=== PATIENT | male | born 1965 | race Hispanic/Latino ===

== ENCOUNTER 2022-05-26 12:39 | Emergency (ER) | payer OTHER ==
[~2022-05-26] VITALS: Ht 167.6 cm; Wt 72.6 kg
[2022-05-26 13:35] LABS: BASOPHILS % (AUTO) 0.2 % (0.0-5.0); EOSINOPHILS % (AUTO) 0.2 % (0.0-8.0); HEMATOCRIT 44.8 % (42-54); LYMPHOCYTES % (AUTO) 4.9 % (21.0-51.0); MEAN CORPUSCULAR HEMOGLOBIN 29.6 pg (27.0-33.0); MEAN CORPUSCULAR VOLUME 84.5 fL (79-99); MONOCYTES % (AUTO) 12.3 % (3.0-13.0); NEUTROPHILS % (AUTO) 82.1 % (40.0-77.0); PLATELET COUNT (AUTO) 220 K/uL (130-400); WHITE BLOOD COUNT (AUTO) 6.5 K/uL (4.8-10.8)
[2022-05-26 13:43] LABS: POTASSIUM 4.4 mmol/L (3.5-5.1)
[2022-05-26 13:43] LABS: APPEARANCE,URINE Clear (CLEAR); BILIRUBIN,URINE Negative (NEGATIVE); COLOR,URINE Yellow (YELLOW); GLUCOSE, URINE (UA) Negative (NEGATIVE); KETONES,URINE Negative (NEGATIVE); LEUKOCYTE ESTERASE ,URINE Negative (NEGATIVE); NITRATE,URINE Negative (NEGATIVE); OCCULT BLOOD,URINE Negative (NEGATIVE); PH,URINE 5.5 (5.0-8.0); PROTEIN,URINE Negative (NEGATIVE); UROBILINOGEN,URINE 0.2 mg/dL (0.2-1.0)
[2022-05-26 13:48] LABS: BILIRUBIN,TOTAL 0.4 mg/dL (0.2-1.0); TOTAL PROTEIN, SERUM 8.1 g/dL (6.0-8.3)
[2022-05-26] MEDS ORDERED: ACETAMINOPHEN 500 MG TABLET PO ONE (14:00)
[2022-05-26] MEDS ORDERED: ACET-66 PO (15:04)
[2022-05-26] MEDS ORDERED: D-ME118S47 PO (15:04)
[2022-05-26] MEDS ORDERED: ONDA4TAB10 PO (15:04)
[2022-05-26 15:11] VITALS: BP 125/82
[2022-05-26] MEDS ORDERED: ONDANSETRON ODT 4MG TAB SL ONE (15:30)
== END 2022-05-26 16:00 | disposition home or self-care (01) ==
LOC: EDH 12:39
DX: U07.1 COVID-19 (principal); E78.00 Pure hypercholesterolemia, unspecified; Z98.890 Other specified postprocedural states; Z79.899 Other long term (current) drug therapy
CPT/HCPCS: 36415; 80053; 81003; 85025; 87635; 87804 ×2; 99283; C9803

== ENCOUNTER 2024-09-07 10:36 | Emergency (ER) | payer BC ==
[~2024-09-07] VITALS: Ht 172.7 cm; Wt 77.1 kg
[~2024-09-07 10:36] MED LIST: ACET-66 PO; BROM118S48 PO; ONDA-243 PO
[2024-09-07 10:56] VITALS: TEMP 98.6
[2024-09-07 11:07] LABS: BASOPHILS # (AUTO) 0.02 K/uL (0.00-0.20); BASOPHILS % (AUTO) 0.4 % (0.0-5.0); EOSINOPHILS # (AUTO) 0.07 K/uL (0.00-0.70); EOSINOPHILS % (AUTO) 1.2 % (0.0-8.0); HEMATOCRIT 47.4 % (42-54); IMMATURE GRANULOCYTE ABSOLUTE 0.02 K/uL (0-1); LYMPHOCYTES # (AUTO) 1.2 K/uL (1.0-4.8); LYMPHOCYTES % (AUTO) 20.6 % (21.0-51.0); MEAN CORPUSCULAR HGB CONC 34.6 g/dL (32.0-36.0); MEAN CORPUSCULAR VOLUME 86.8 fL (79-99); MONOCYTES # (AUTO) 0.4 K/uL (0.1-1.0); MONOCYTES % (AUTO) 7.2 % (3.0-13.0); NEUTROPHILS % (AUTO) 70.2 % (40.0-77.0); PLATELET COUNT (AUTO) 261 K/uL (130-400); RED BLOOD CELL COUNT(AUTO) 5.46 MIL/uL (4.50-6.20); RED CELL DISTRIBUTION WIDTH 12.8 % (11.0-15.5); WHITE BLOOD COUNT (AUTO) 5.7 K/uL (4.8-10.8)
[2024-09-07 11:10] LABS: CREATININE 0.9 mg/dL (0.5-1.3); POTASSIUM 4.4 mmol/L (3.5-5.1)
[2024-09-07 11:15] LABS: BILIRUBIN,TOTAL 0.4 mg/dL (0.2-1.0); TOTAL PROTEIN, SERUM 7.7 g/dL (6.0-8.3)
[2024-09-07 12:36] VITALS: BP 126/78; PULSE 72; RESP 16; O2SAT 96
== END 2024-09-07 12:39 | disposition home or self-care (01) ==
LOC: EDH 10:36
DX: R07.89 Other chest pain (principal); E78.00 Pure hypercholesterolemia, unspecified; Z95.5 Presence of coronary angioplasty implant and graft
CPT/HCPCS: 36415; 71045; 80053; 84484; 85025; 93005

== ENCOUNTER 2024-11-04 17:48 | Emergency (ER) | payer BC ==
[~2024-11-04] VITALS: Ht 160 cm; Wt 74.8 kg
[2024-11-04 18:16] LABS: BASOPHILS # (AUTO) 0.01 K/uL (0.00-0.20); BASOPHILS % (AUTO) 0.1 % (0.0-5.0); EOSINOPHILS # (AUTO) 0.07 K/uL (0.00-0.70); HEMATOCRIT 43.8 % (42-54); IMMATURE GRANULOCYTE ABSOLUTE 0.01 K/uL (0-1); LYMPHOCYTES # (AUTO) 1.3 K/uL (1.0-4.8); LYMPHOCYTES % (AUTO) 19.3 % (21.0-51.0); MEAN CORPUSCULAR HEMOGLOBIN 30.1 pg (27.0-33.0); MEAN CORPUSCULAR HGB CONC 35.6 g/dL (32.0-36.0); MEAN CORPUSCULAR VOLUME 84.4 fL (79-99); MONOCYTES # (AUTO) 0.5 K/uL (0.1-1.0); MONOCYTES % (AUTO) 7.1 % (3.0-13.0); NEUTROPHILS % (AUTO) 72.4 % (40.0-77.0); PLATELET COUNT (AUTO) 303 K/uL (130-400); RED BLOOD CELL COUNT(AUTO) 5.19 MIL/uL (4.50-6.20); RED CELL DISTRIBUTION WIDTH 12.6 % (11.0-15.5); WHITE BLOOD COUNT (AUTO) 6.9 K/uL (4.8-10.8)
[2024-11-04 18:18] LABS: CREATININE 0.9 mg/dL (0.5-1.3); POTASSIUM 3.8 mmol/L (3.5-5.1)
[2024-11-04 18:38] LABS: BILIRUBIN,DIRECT 0.1 mg/dL (0.0-0.3); BILIRUBIN,TOTAL 0.4 mg/dL (0.2-1.0)
[2024-11-04 18:39] LABS: TOTAL PROTEIN, SERUM 7.8 g/dL (6.0-8.3)
--- NOTE | 2024-11-04 19:18 | NUR ---
UA CUP PROVIDED
--- NOTE | 2024-11-04 20:10 | NUR ---
URINE SENT TO LAB
[2024-11-04 20:19] LABS: ADD UA MICROSCOPIC NO; APPEARANCE,URINE CLEAR (CLEAR); BILIRUBIN,URINE NEGATIVE (NEGATIVE); COLOR,URINE LIGHT-YELLOW (YELLOW); GLUCOSE, URINE (UA) NEGATIVE (NEGATIVE); KETONES,URINE NEGATIVE (NEGATIVE); LEUKOCYTE ESTERASE ,URINE NEGATIVE Leu/uL (NEGATIVE); NITRATE,URINE NEGATIVE (NEGATIVE); OCCULT BLOOD,URINE NEGATIVE (NEGATIVE); PH,URINE 5.5 (5.0-8.0); PROTEIN,URINE NEGATIVE (NEGATIVE); UROBILINOGEN,URINE 0.2 mg/dL (0.2-1.0)
[2024-11-04 22:37] VITALS: TEMP 98.4
[2024-11-04] MEDS ORDERED: IOHEXOL-350 75 ML VIAL IV ONE (23:07)
--- NOTE | 2024-11-04 23:39 | HMCIMG ---
CT ABDOMEN/PELVIS W/CONTRAST HISTORY: Abdominal pain COMPARISON: 05/25/2015 TECHNIQUE: Multiple sequential axial images of the abdomen and pelvis were obtained from the dome of the diaphragm through symphysis pubis. Patient was given 75 cc of Omnipaque through intravenous route. Oral contrast was not given. FINDINGS: No pleural effusion is seen bilaterally. There is no evidence of parenchymal disease or pulmonary nodule of the visualized lower lungs. Degenerative changes of the thoracolumbar spine are present. The heart is not enlarged. Coronary arterial calcifications are seen. Liver measures 18 cm. The liver, spleen, adrenal glands and pancreas are unremarkable. There is no evidence of hydronephrosis bilaterally. No evidence of renal stone is seen. Fecal material is seen in the colon. There are normal size retroperitoneal and mesenteric lymph nodes. No ascites is seen. Appendix is not seen limiting evaluation. No definite CT evidence of acute appendicitis is seen. Clinical correlation is recommended. Pelvic sidewalls are symmetric bilaterally. Bladder is poorly distended. IMPRESSION: 1. Fecal material is seen in the colon. No definite CT evidence of acute appendicitis is seen. CT was performed with one or more following dose reduction techniques: automated exposure control, adjustment of the mA and kv according to patient's size, or use of a iterative reconstruction technique.
[2024-11-04] MEDS ORDERED: DOCU-116 PO (23:42)
[2024-11-04] MEDS ORDERED: POLY17PO4 PO (23:42)
--- NOTE | 2024-11-04 23:42 | ERN ---
General Chief Complaint: Abdominal Pain Stated Complaint: ABDOMINAL PAIN Time Seen by MD: 17:50 Time Seen by Midlevel: 17:50 Source: patient History of Present Illness Initial Comments Patient is a 59-year-old male presenting to the emergency department with a right lower quadrant abdominal pain that started approximately four days ago and has progressively worsened. He was concerned he may have appendicitis. Denies any other symptoms at this time. Allergies: Coded Allergies: No Known Allergies (Unverified Allergy, Unknown, 05/26/22) Home Meds Active Scripts Docusate Sodium (Colace) 100 Mg Capsule, 100 MG PO TID for constipation for 10 Days, #30 CAP 0 Refills Prov:ISSA RAMIREZ 11/04/24 Polyethylene Glycol 3350 (Miralax) 17 Gram Powd.pack, 17 GM PO DAILY for constipation for 20 Days, #20 PACKET 0 Refills Prov:ISSA RAMIREZ 11/04/24 D-Methorphan Hb/P-Epd HCl/Bpm (Bromfed Dm Cough Syrup) 118 Ml Syrup, 10 ML PO QID for COUGH, #120 ML Prov:PEDRO LIGHT MD 05/26/22 Ondansetron (Ondansetron Odt) 4 Mg Tab.rapdis, 4 MG PO TID for NAUSEA, #15 TAB Prov:PEDRO LIGHT MD 05/26/22 Acetaminophen (Acetaminophen) 500 Mg Tablet, 1000 MG PO QID, #50 TAB Prov:PEDRO LIGHT MD 05/26/22 Past Medical History Past Medical History: Heart Disease, [place] Medical History Other: HEART ATTACK Past Surgical History: Other Surgical History Other: LHC STENTS X1 Social History Social History: Lives with family ROS Dictation CONSTITUTIONAL: Negative except for HPI HEAD/FACE: Negative except for HPI EENT: Negative except for HPI RESPIRATORY: Negative except for HPI GASTROINTESTINAL/ABDOMINAL: Negative except for HPI GENITOURINARY: Negative except for HPI MUSCULOSKELETAL: Negative except for HPI INTEGUMENTARY: Negative except for HPI NEUROLOGICAL/PSYCH: Negative except for HPI HEMATOLOGIC/LYMPHATIC: Negative except for HPI All Systems Negative, Except as noted above. 13 point review of systems assessed and all negative except for above. Physical Exam Physical Exam Dictation Vital Signs reviewed General Appearance: Alert, oriented x 3, no acute distress, well developed, nourished. Head and Face: non-traumatic. Eyes: PERRL, pink conjunctivas, eyelid no trauma, anterior chamber with arcus senilis. Ears: Pinnas intact and no signs of trauma or erythema ear canals clear and no discharge TM no erythema Nose: No discharge, no bleeding. Oropharynx: Mouth normal, tongue pink, pharynx clear,no erythema, tonsils no exudates, no abscesses noted, mucous membrane moist Neck: Supple, non-tender, no thyromegaly, no masses, no JVD, no bruits Breast:Deferred Chest:No tenderness, no crepitus, no paradoxical movement, no retractions Lungs:Clear, well-ventilated, symmetric, no rales, no wheezing, no rhonchi, no stridor, good breath sounds bilaterally Heart: Regular rate, regular rhythm, no murmur, no gallops Vascular: no peripheral edema, Abdomen: Soft, positive bowel sounds, nondistended, no guarding, Mild right lower quadrant abdominal tenderness, no rebound, no masses no hepatomegaly, no splenomegaly, no Cruz's sign, no hernias. Rectal: Deferred Genital: Deferred Neurological: Normal speech, motor function intact, sensory function intact Musculoskeletal: Neck nontender, full range of motion, back nontender, full range of motion, Extremities: nontender, full range of motion Skin: Color pink, dry, no turgor, no rash, no lacerations, no abrasions, no contusions. Lymphatic: Deferred Results Laboratory and Microbiology Lab and Micro Result Laboratory Tests Test 11/04/24 18:01 11/04/24 20:10 White Blood Count 6.9 K/uL (4.8-10.8) Red Blood Count 5.19 MIL/uL (4.50-6.20) Hemoglobin 15.6 g/dL (14.0-18.0) Hematocrit 43.8 % (42-54) Mean Corpuscular Volume 84.4 fL (79-99) Mean Corpuscular Hemoglobin 30.1 pg (27.0-33.0) Mean Corpuscular Hemoglobin Concent 35.6 g/dL (32.0-36.0) Red Cell Distribution Width 12.6 % (11.0-15.5) Platelet Count 303 K/uL (130-400) Mean Platelet Volume 9.3 fL (7.5-10.5) Immature Granulocyte % (Auto) 0.1 % (0-1) Neutrophils (%) (Auto) 72.4 % (40.0-77.0) Lymphocytes (%) (Auto) 19.3 % (21.0-51.0) L Monocytes (%) (Auto) 7.1 % (3.0-13.0) Eosinophils (%) (Auto) 1.0 % (0.0-8.0) Basophils (%) (Auto) 0.1 % (0.0-5.0) Neutrophils # (Auto) 5.0 K/uL (1.8-7.7) Lymphocytes # (Auto) 1.3 K/uL (1.0-4.8) Monocytes # (Auto) 0.5 K/uL (0.1-1.0) Eosinophils # (Auto) 0.07 K/uL (0.00-0.70) Basophils # (Auto) 0.01 K/uL (0.00-0.20) Absolute Immature Granulocyte (auto 0.01 K/uL (0-1) Nucleated Red Blood Cells 0.0 % (0.0-0.19) Sodium Level 138 mmol/L (136-145) Potassium Level 3.8 mmol/L (3.5-5.1) Chloride Level 102 mmol/L (101-111) Carbon Dioxide Level 27 mmol/L (21-32) Blood Urea Nitrogen 14 mg/dL (7-18) Creatinine 0.9 mg/dL (0.5-1.3) Glomerular Filtration Rate Calc 100 mL/min (>90) Random Glucose 118 mg/dL (70-105) H Total Calcium 8.9 mg/dL (8.5-10.1) Total Bilirubin 0.4 mg/dL (0.2-1.0) Direct Bilirubin 0.1 mg/dL (0.0-0.3) Aspartate Amino Transf (AST/SGOT) 13 U/L (10-37) Alanine Aminotransferase (ALT/SGPT) 20 U/L (12-78) Alkaline Phosphatase 62 U/L (50-136) Total Protein 7.8 g/dL (6.0-8.3) Albumin 4.0 g/dL (3.5-5.0) Lipase 67 U/L (16-77) Urine Color LIGHT-YELLOW (YELLOW) Urine Appearance CLEAR (CLEAR) Urine pH 5.5 (5.0-8.0) Urine Specific [place] 1.021 (1.001-1.031) Urine Protein NEGATIVE mg/dL (NEGATIVE) Urine Glucose (UA) NEGATIVE mg/dL (NEGATIVE) Urine Ketones NEGATIVE mg/dL (NEGATIVE) Urine Occult Blood NEGATIVE (NEGATIVE) Urine Nitrate NEGATIVE (NEGATIVE) Urine Bilirubin NEGATIVE mg/dL (NEGATIVE) Urine Urobilinogen 0.2 mg/dL (0.2-1.0) Urine Leukocyte Esterase NEGATIVE Gray/uL Labs Reviewed?: Yes MDM MDM: Differential diagnosis: Appendicitis, ulcerated hernia, small-bowel obstruction, constipation There are no social concerns with this patient. Prescription drug management Prescriptions will include: MiraLax and Colace Medical management and examination interpretation discussions were had by me with other qualified healthcare professionals as indicated for the patient's care. ED Course Orders Procedure Category Date Status Time Vital Signs Per CPOE 11/04/24 Transmitted Routine 17:51 Saline Lock Iv CPOE 11/04/24 Transmitted 17:51 Cbc With Differential LAB 11/04/24 Complete 17:51 Lipase LAB 11/04/24 Complete 17:51 Urinalysis Profile LAB 11/04/24 Complete 17:51 Basic Metabolic Panel LAB 11/04/24 Complete 17:51 Hepatic Function Panel LAB 11/04/24 Complete 17:58 Ct Abdomen/Pelvis CT 11/04/24 Resulted W/Contrast 20:50 Iohexol (Omnipaque) PHA 11/04/24 Complete 23:07 Current Medications Medications (Trade) Dose Ordered Sig/Rebeca Route PRN Reason Start Time Stop Time Status Last Admin Dose Admin Iohexol (Omnipaque) 75 ml [employer] ONCE IV 11/04/24 23:07 11/04/24 23:08 DC Vital Signs Date Time Temp Pulse Resp B/P (MAP) Pulse Ox O2 Delivery O2 Flow Rate FiO2 11/04/24 22:37 98.4 74 16 135/78 99 Room Air* 0 21 11/04/24 19:13 97.2 71 16 138/85 98 Room Air [place] [id number] [address] IMAGING REPORT Signed PATIENT: ARIADNE PIERRE MR#: [id number] : 1965 SEX: M AGE: 59 LOCATION: [facility] ORDER 50 STATUS: REG ER REPORT#: [id number] SERVICE 49 REASON: rlq ABD PAIN R/O APPENDICITIS ORDERING PHYSICIAN: ISSA RAMIREZ PROCEDURE: ABD PEL W - CT ABDOMEN/PELVIS W/CONTRAST CT ABDOMEN/PELVIS W/CONTRAST HISTORY: Abdominal pain COMPARISON: 05/25/2015 TECHNIQUE: Multiple sequential axial images of the abdomen and pelvis were obtained from the dome of the diaphragm through symphysis pubis. Patient was given 75 cc of Omnipaque through intravenous route. Oral contrast was not given. FINDINGS: No pleural effusion is seen bilaterally. There is no evidence of parenchymal disease or pulmonary nodule of the visualized lower lungs. Degenerative changes of the thoracolumbar spine are present. The heart is not enlarged. Coronary arterial calcifications are seen. Liver measures 18 cm. The liver, spleen, adrenal glands and pancreas are unremarkable. There is no evidence of hydronephrosis bilaterally. No evidence of renal stone is seen. Fecal material is seen in the colon. There are normal size retroperitoneal and mesenteric lymph nodes. No ascites is seen. Appendix is not seen limiting evaluation. No definite CT evidence of acute appendicitis is seen. Clinical correlation is recommended. Pelvic sidewalls are symmetric bilaterally. Bladder is poorly distended. IMPRESSION: 1. Fecal material is seen in the colon. No definite CT evidence of acute appendicitis is seen. CT was performed with one or more following dose reduction techniques: automated exposure control, adjustment of the mA and kv according to patient's size, or use of a iterative reconstruction technique. DICTATED BY: MARK HUGHES MD DATE: 11/04/242328 ELECTRONICALLY SIGNED BY: MARK HUGHES MD DATE: 11/04/242338 DX & DISP Disposition: Discharge Departure Impression: Primary Impression: Constipation Condition: Stable Scripts Docusate Sodium (Colace) 100 Mg Capsule 100 MG PO TID for constipation for 10 Days, #30 CAP 0 Refills Prov: ISSA RAMIREZ 11/04/24 Polyethylene Glycol 3350 (Miralax) 17 Gram Powd.pack 17 GM PO DAILY for constipation for 20 Days, #20 PACKET 0 Refills Prov: ISSA RAMIREZ 11/04/24 Additional Instructions: Your blood work today is unremarkable. Your CT scan does not show any evidence of appendicitis. Your CT scan shows large amount of stool in the colon consistent with constipation. I will go ahead and discharged her with a prescription for MiraLax and colace which should help with your pain outpatient. You will need to follow up with your primary care doctor in 2-3 days for repeat evaluation. Return to the ER for any new or worsening symptoms Referrals: PATITO FLOWER DC, SEQUINS STRINGER (PCP) Time of Disposition: 23:41 I have reviewed the case, and I agree with, Diagnosis and Plan I performed the substantive portion of the visit. I have reviewed and personally made and approve the management plan that is documented in the note by myself or the LINDY. I acknowledge for responsibility for the patient's management plan. ISSA RAMIREZ Nov 04, 2024 23:42
[2024-11-04 23:58] VITALS: BP 136/71; PULSE 74; RESP 16; O2SAT 98
== END 2024-11-04 23:59 | disposition home or self-care (01) ==
LOC: EDH 17:48
DX: K59.00 Constipation, unspecified (principal); Z79.899 Other long term (current) drug therapy
CPT/HCPCS: 99284; 74177; 80076; 80048; 83690; 85025; 81003; 36415; Q9967

== ENCOUNTER → 2025-08-01 | Emergency (ER) | payer BC ==
[~2025-08-01] VITALS: Ht 167.6 cm; Wt 72.6 kg
[~2025-08-01] MED LIST changes: +DOCU-116 PO; +POLY17PO4 PO
[2025-08-01 17:42] VITALS: BP 131/83; PULSE 72; RESP 18; TEMP 98.1
--- NOTE | 2025-08-01 19:18 | NUR ---
CALLED FOR PT TO MOVE TO FT AREA; NO RESPONSE; PT NOT FOUND IN LOBBY.
--- NOTE | 2025-08-01 19:38 | NUR ---
CALLED FOR PT AGAIN. NO RESPONSE; PT NOT FOUND IN LOBBY
--- NOTE | 2025-08-02 06:18 | EKG ---
[facility] Test Date: 2025-08-01 Test Time: 17:03:36 Pat Name: ARIADNE PIERRE Department: ED Room: Gender: M Key Ringer: [id number] : 1965 Requested By: MOIRA HINKLE Order Number: [id number] Reading MD: Tomas Johnson Measurements Intervals [place] Rate: 66 P: 22 [place]: 150 QRS: -16 QRSD: 93 T: 55 QT: 387 QTc: 406 Interpretive Statements Sinus rhythm Compared to ECG 09/07/2024 10:43:48 No significant changes Electronically Signed On 08-02-2025 15:50:44 CDT by Tomas Johnson Please click the below link to view image of tracing.
== END ==
LOC: EDH 17:40
DX: M54.50 Low back pain, unspecified (principal); Z53.21 Procedure and treatment not carried out due to patient leaving prior to being seen by health care provider
CPT/HCPCS: 93005